=== PATIENT | female | born 1940 | race Caucasian/White ===

== ENCOUNTER 2019-02-15 15:14 | Observation (INO) | payer MEDICARE, BC ==
--- NOTE | 2019-02-15 15:36 | EDM.PDOC ---
ED HPI GENERAL MEDICAL PROBLEM - General Chief Complaint: Head Injury Stated Complaint: FALL FROM STANDING HEIGHT Time Seen by Provider: 02/15/19 15:25 Source of Information: Reports: Patient, EMS, Family History Limitations: Reports: Other (Patient has baseline dementia) - History of Present Illness INITIAL COMMENTS - FREE TEXT/NARRATIVE: Patient presents by EMS. States she was in her driveway slipped and fell backwards hitting her head on concrete. Fall was witnessed. Initially patient was confused after the fall. Has headaches no blurred vision has no neck pain. Denies any other injury. Patient is on aspirin. Patient has baseline dementia Onset: Today, Sudden Onset Date: 02/15/19 Onset Time: 14:30 Location: Reports: Head Quality: Reports: Ache, Burning Severity: Moderate Improves with: Reports: Cold Therapy Worsens with: Reports: Movement Context: Reports: Other (Patient was walking down her driveway when she fell) Associated Symptoms: Reports: Confusion, Headaches, Malaise, Weakness Treatments DYNAMICIST: Reports: See EMS Report. Denies: Cervical Collar Generalized Pain Score (Numeric/FACES): 3 - Related Data Allergies Allergy/AdvReac Type Severity Reaction Status Date / Time influenza virus vaccine, Allergy Hives Verified 02/15/19 20:02 specific [influenza virus vacc,specific] iodine Allergy Hives Verified 02/15/19 20:02 shellfish derived Allergy Hives Verified 02/15/19 20:02 cephalexin AdvReac YEAST Verified 02/15/19 20:02 codeine AdvReac Nausea and Verified 02/15/19 20:02 Vomiting erythromycin base AdvReac Nausea and Verified 02/15/19 20:02 Vomiting oxycodone HCl [From Percocet] AdvReac Nausea and Verified 02/15/19 20:02 Vomiting Home Meds: Home Meds Acetaminophen [Tylenol Extra Strength] 500 mg PO Q4HR PRN 01/22/15 [History] Aspirin [Adult Low Dose Aspirin EC] 81 mg PO DAILY 01/22/15 [History] Cholecalciferol (Vitamin D3) [D3-2000] 2,000 unit PO DAILY 01/22/15 [History] Multivitamin [Multi-Vitamin Daily] 1 tab PO DAILY 01/22/15 [History] Propranolol [Inderal LA] 120 mg PO DAILY 01/22/15 [History] Raloxifene [Evista] 60 mg PO DAILY 01/22/15 [History] atorvaSTATin [Lipitor] 40 mg PO BEDTIME 01/22/15 [History] Donepezil [Aricept] 5 mg PO BEDTIME 02/15/19 [History] FLUoxetine HCl [Fluoxetine HCl] 40 mg PO DAILY 02/15/19 [History] Losartan [Cozaar] 100 mg PO DAILY 02/15/19 [History] Past Medical History Cardiovascular History: Reports: High Cholesterol, Hypertension Other Cardiovascular History: palputations... medication Respiratory History: Reports: Asthma Musculoskeletal History: Reports: Arthritis Psychiatric History: Reports: Alzheimers Disease Other Oncologic History: on medication for 5 years... - Past Surgical History Other Musculoskeletal Surgeries/Procedures:: BILATERAL KNEE SURGERY TO REMOVE BONE PARTICALS Other Oncologic Surgeries/Procedures: RIGHT Social & Family History - Family History Family Medical History: Unobtainable ED ROS GENERAL - Review of Systems Review Of Systems: See Below Constitutional: Reports: Weakness HEENT: Reports: Ear Pain, Eye Pain. Denies: Vision Change Respiratory: Reports: No Symptoms Cardiovascular: Reports: No Symptoms Endocrine: Reports: No Symptoms GI/Abdominal: Reports: No Symptoms : Reports: No Symptoms Musculoskeletal: Reports: Neck Pain, Back Pain, Muscle Pain, Muscle Stiffness Skin: Reports: Wound (on the lateral aspect of her left eye), Other Neurological: Reports: Confusion, Dizziness, Headache, Difficulty Walking, Weakness, Gait Disturbance. Denies: Trouble Speaking, Change in Speech Psychiatric: Reports: Anxiety Hematologic/Lymphatic: Reports: Easy Bleeding Immunologic: Reports: No Symptoms ED EXAM, HEAD INJURY - Physical Exam Exam: See Below Text/Narrative:: pt on arrival was alert , but was not able to answer questions appropriately : unsure of date of , day and time did remember her name on reviewed pt has baseline dementia and is on Donepezil Exam Limited By: Other (Cognitive impairment) General Appearance: Alert, No Apparent Distress, Mild Distress Head: Active Bleeding, Facial Abrasions, Facial Lacerations (one the lateral aspect of the left eye noted to have deep laceration , extending about 3.5cm in length , 2 cm wide adn 1 cm deep, dirty , contaminated wound . Also had and abrasion lateral to the left eyebrow), Facial Swelling, Facial Tenderness. No: Scalp Lacerations, Scalp Abrasions, Scalp Tenderness, Sinus Tenderness Nexus Criteria: Altered Level of Consciousness (initial change in LOC when EMS picked pt , gradually improved). No: Posterior, Midline Cervical Tenderness, Focal Neurological Deficit Eyes: Bilateral Eye: EOMI, Normal Fundi, Normal Inspection, PERRL Ears: Normal External Exam, Normal Canal, Normal TMs Nose: Normal Inspection, Normal Mucousa Throat/Mouth: Normal Oropharynx, Normal Voice, Other (abrrasion on the lower lip ) Neck: Full Range of Motion, Normal Alignment Respiratory: No Respiratory Distress, Lungs Clear Cardiovascular: Normal Peripheral Pulses, Regular Rate, Rhythm Back Exam: Normal Inspection, Full Range of Motion. No: CVA Tenderness (R) Extremities: Normal Inspection, Normal Range of Motion Neurologic: No Motor/Sensory Deficits, Alert, Other (pt oriented to self only) Skin: Normal Color, Warm/Dry - [place] Coma Score Best Eye Response ([place]): (4) Open Spontaneously Best Verbal Response (Zee): (4) Confused Conversation Best Motor Response (Zee): (6) Obeys Commands ED LACERATION/WOUND & PETER PROC - Laceration/Wound Repair Left Side Face Lac/wound length in cm: 3.5 (2cm wide and 1cm deep) Appearance: Subcutaneous, Heavily Contaminated Distal NVT: Neuro & Vascular Intact Anesthetic Type: Local Local Anesthesia - Lidocaine (Xylocaine): 1% with EPI Local Anesthetic Volume: Other (8) Skin Prep: Chlorhexidine (Hibiciens), Saline, Sterile Drape Saline irrigation (cc's): 50 Exploration/Debridement/Repair: Wound Explored, In a Bloodless Field, Minimal Debridement, Foreign Material Removed, Wound Margins Revised Closed with: Sutures Suture Size: 6-0 # of Sutures: 8 Suture Type: Interrupted Suture Size: 5-0 # of Sutures: 1 (running) Repaired with: Vicryl Sterile Dressing Applied: Nurse Tetanus Status Addressed: Yes Complications: No Progress/Comments: Extensive wound irrigation done , sand and debris noted in the wound. Patient placed on prophylactic antibiotics , being treated for UTI also Course - Vital Signs Last Recorded V/S: Last Vital Signs Temp 36.5 C 02/15/19 21:05 Pulse 64 02/15/19 21:05 Resp 16 02/15/19 21:05 BP 181/75 H 02/16/19 08:55 Pulse Ox 100 02/15/19 21:05 - Orders/Labs/Meds Orders: Active Orders 24 hr Category Date Time Status CULTURE URINE [RM] Stat Lab 02/15/19 15:43 Received Sodium Chloride 0.9% [Normal Saline] 1,000 ml Med 02/15/19 16:45 Active IV ASDIRECTED Medication Orders Acetaminophen (Tylenol Extra Strength) 500 mg PO Q4H PRN PRN Reason: Pain Last Admin: 02/16/19 08:54 Dose: 500 mg Admin: 02/16/19 03:08 Dose: 500 mg Admin: 02/15/19 23:19 Dose: 500 mg Donepezil HCl (Aricept) 5 mg PO BEDTIME SHEILA Fluoxetine HCl (Prozac) 40 mg PO DAILY [facility] Last Admin: 02/16/19 08:55 Dose: 40 mg Admin: 02/15/19 22:35 Dose: 40 mg Sodium Chloride (Normal Saline) 1,000 mls @ 250 mls/hr IV ASDIRECTED SHEILA Last Admin: 02/15/19 17:36 Dose: 250 mls/hr Losartan Potassium (Cozaar) 100 mg PO DAILY [facility] Last Admin: 02/16/19 08:55 Dose: 100 mg Admin: 02/15/19 22:35 Dose: 100 mg Propranolol Er 120 (Mg) 1 each PO DAILY [facility] Last Admin: 02/16/19 08:55 Dose: 1 each Labs: Laboratory Tests 02/15/19 02/15/19 02/15/19 Range/Units 15:40 15:40 15:43 WBC 8.0 (4.5-12.0) X10-3/uL RBC 4.35 (3.23-5.20) x10(6)uL Hgb 13.6 (11.5-15.5) g/dL Hct 40.1 (30.0-51.3) % MCV 92.2 (80-96) fL MCH 31.2 (27.7-33.6) pg MCHC 33.8 (32.2-35.4) g/dL RDW 12.4 (11.5-15.5) % Plt Count 374 H (125-369) X10(3)uL Sodium 139 (135-145) mmol/L Potassium 3.3 L (3.5-5.3) mmol/L Chloride 101 (100-110) mmol/L Carbon Dioxide 25 (21-32) mmol/L BUN 22 H (7-18) mg/dL Creatinine 1.3 H (0.55-1.02) mg/dL Est Cr Clr Drug Dosing TNP Estimated GFR (MDRD) 40 L (>60) BUN/Creatinine Ratio 16.9 (9-20) Glucose 120 H (80-116) mg/dL Calcium 9.9 (8.6-10.2) mg/dL Urine Color Yellow (YELLOW) Urine Appearance Cloudy (CLEAR) Urine pH 5.0 (5.0-6.5) Ur Specific [place] 1.020 (1.010-1.025) Urine Protein 100 H (NEGATIVE) mg/dL Urine Glucose (UA) Normal (NORMAL) mg/dL Urine Ketones 150 H (NEGATIVE) mg/dL Urine Occult Blood Trace (NEGATIVE) Urine Nitrite Negative (NEGATIVE) Urine Bilirubin Moderate H (NEGATIVE) Urine Urobilinogen 1 H (NEGATIVE) mg/dL Ur Leukocyte Esterase Moderate H (NEGATIVE) Urine RBC 5-10 H (0-5) Urine WBC 5-10 H (0-5) Ur Squamous Epith Cells Many H (NS,R,O) Urine Bacteria Many H (NS) Urine Mucus Moderate H (NS) Meds: Medications Generic Name Dose Route Start Last Admin Trade Name Freq PRN Reason Stop Dose Admin Acetaminophen 500 mg 02/15/19 21:32 02/16/19 08:54 Tylenol Extra Strength PO 500 mg Q4H PRN Administration Pain Donepezil HCl 5 mg 02/16/19 21:00 Aricept PO BEDTIME SHEILA Fluoxetine HCl 40 mg 02/15/19 22:45 02/16/19 08:55 Prozac PO 40 mg DAILY SHEILA Administration Sodium Chloride 1,000 mls @ 250 mls/hr 02/15/19 16:45 02/15/19 17:36 Normal Saline IV 250 mls/hr ASDIRECTED SHEILA Administration Losartan Potassium 100 mg 02/15/19 22:45 02/16/19 08:55 Cozaar PO 100 mg DAILY SHEILA Administration Propranolol Er 120 1 each 02/16/19 09:00 02/16/19 08:55 Mg PO 1 each DAILY SHEILA Administration Discontinued Medications Generic Name Dose Route Start Last Admin Trade Name Freq PRN Reason Stop Dose Admin Diphtheria/Tetanus/Acell Pertussis 0.5 ml 02/15/19 20:10 02/15/19 20:25 Adacel IM 02/15/19 20:11 0.5 ml .ONCE ONE Administration Fluoxetine HCl 40 mg 02/15/19 21:45 Prozac PO DAILY SHEILA Losartan Potassium 100 mg 02/15/19 21:45 02/15/19 22:32 Cozaar PO 100 mg DAILY SHEILA Administration Non-Formulary Medication 120 mg 02/15/19 21:45 02/15/19 22:34 Propranolol [Inderal La] PO 120 mg DAILY SHEILA Administration Patient's Own 1 each 02/15/19 22:45 02/15/19 22:35 Medication PO 1 each Propranolol Er 120 DAILY SHEILA Administration Mg Potassium Chloride 40 meq 02/15/19 16:34 02/15/19 17:44 Klor-Con M20 PO 02/15/19 16:35 40 meq ONETIME ONE Administration Departure - Departure Time of Disposition: 21:05 Disposition: Refer to Observation Clinical Impression: Concussion with no loss of consciousness - Discharge Information *PRESCRIPTION DRUG MONITORING PROGRAM REVIEWED*: Not Applicable *COPY OF PRESCRIPTION DRUG MONITORING REPORT IN PATIENT CARLITO: Not Applicable - My Orders Last 24 Hours: My Active Orders 02/15/19 15:43 CULTURE URINE [RM] Stat 02/15/19 16:45 Sodium Chloride 0.9% [Normal Saline] 1,000 ml IV ASDIRECTED - Assessment/Plan Last 24 Hours: My Active Orders 02/15/19 15:43 CULTURE URINE [RM] Stat 02/15/19 16:45 Sodium Chloride 0.9% [Normal Saline] 1,000 ml IV ASDIRECTED
[2019-02-15] MEDS ORDERED: Potassium Chloride 20 MEQ Tab.ER PO ONE (16:34)
[2019-02-15] MEDS ORDERED: Sodium Chloride 0.9% 1,000 ML IV SCH (16:45)
[2019-02-15] MEDS ORDERED: Diphtheria,Pertussis(Acell),Tetanus Vaccine 0.5 ML SDV IM ONE (20:10)
[2019-02-15] MEDS ORDERED: FLUoxetine 20 MG Cap PO SCH (21:45)
[2019-02-15] MEDS ORDERED: Losartan 100 MG Tab PO SCH (21:45)
[2019-02-15] MEDS ORDERED: Non-Formulary Medication 1 Each (Propranolol [Inderal La] 120 MG) PO SCH (21:45)
[2019-02-15] MEDS: FLUoxetine 20 MG Cap**OWN MED PO SCH (22:35)
[2019-02-15] MEDS: Losartan 100 MG Tab**OWN MED PO SCH (22:35)
[2019-02-15] MEDS ORDERED: PROPRANOLOL 120 MG PO SCH (22:45)
[2019-02-15 22:59] VITALS: PULSE 64
[2019-02-15] MEDS: Acetaminophen 500 MG Tab *PTOM PO PRN (23:19)
[2019-02-16] MEDS: Acetaminophen 500 MG Tab *PTOM PO PRN ×2 (03:08→08:54)
--- NOTE | 2019-02-16 08:05 | CT ---
INDICATION: Stumbled on driveway, falling, hitting left side of head, does not complain of headache or pain. CT HEAD WITHOUT CONTRAST: Spiral examination of the brain was obtained with 3.75 mm axial sections, with sagittal and coronal reconstructions, 02/15/19 - no comparisons. Total exam DLP = 1,244.99 mGy-cm. The mastoid air cells and the paranasal sinuses were well-aerated. There appears to be some soft tissue swelling in the area of the right cheek - maxillary area. No underlying fracture site was seen in the area of apparent trauma in the left frontoparietal area. The patient is positioned asymmetrically. No definite shift of midline structures was seen. The ventricles are prominent, compatible with central atrophy. The sulci at the temporal lobes are prominent, compatible with temporal lobe atrophy of mild degree. Low density abnormality in the right basal ganglia suggests a lacunar infarct. Moderate low density abnormality is diffusely present throughout the white matter, especially on the right, compatible with microvascular disease of moderate degree. This should be correlated clinically, as other cause of leukoencephalopathy could also be present. Calcifications are noted in the internal carotid arteries. No bleeding site or hematoma was identified - no definite acute intracranial abnormality was seen. The orbits appear to be grossly intact. IMPRESSION: 1. No acute intracranial abnormality. 2. White matter changes compatible with moderate microvascular disease, asymmetrically more prominent on the right. 3. Central and temporal lobe cortical atrophy. Report was called to Dr. Em at 1630 hours on 02/15/19. [facility]
--- NOTE | 2019-02-16 08:13 | CT ---
INDICATION: Stumbled on driveway, falling, hitting left side of head, does not complain of headache or pain. CT CERVICAL SPINE: Spiral 2.5 mm axial sections were obtained through the cervical spine, with sagittal and coronal reconstructions, and revealed minimal degenerative changes at the atlantoodontoid joint. The odontoid and atlas appear intact. Total exam DLP = 364.93 mGy-cm. Hypertrophic degenerative changes, sclerosis, subchondral cystic changes, and narrowing of disk spaces are seen at the C3-4, C4-5, C5-6, C6-7, and C7-T1 levels with vacuum disk phenomena at the mid to lower levels, minimal to mild. Hypertrophic spurring is noted both anteriorly and posteriorly off vertebral bodies with narrowing of neural foramina on the right at C3-4, C4-5, C5-6, and C6-7 to a slightly lesser extent. Narrowing of the neural foramina appears less prominent on the left but is not as well seen. Prevertebral space and bone density appear to be normal. A definite acute fracture or dislocation was not identified. Vertebral elements appear to be fairly well-aligned, except for minimal retrolisthesis at levels from C3 through C7. The apical lung included on the study was unremarkable. IMPRESSION: 1. No acute fracture or dislocation. 2. Degenerative changes and disk disease from C3 through T1 with impingement on neural foramina as noted above. Report was called to Dr. Em at 1630 hours on 02/15/19. [facility]
[2019-02-16] MEDS: FLUoxetine 20 MG Cap**OWN MED PO SCH (08:55)
[2019-02-16] MEDS: Losartan 100 MG Tab**OWN MED PO SCH (08:55)
[2019-02-16 08:56] VITALS: BP 181/75
[2019-02-16] MEDS ORDERED: PROPRANOLOL 120 MG PO SCH (09:00)
--- NOTE | 2019-02-16 11:28 | HP ---
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 Apparently by report, she was walking down her driveway, did a toe-pick and fell forward, striking above and just lateral to the eye, sustaining a laceration. Fall was witnessed, initially confused, but no loss of consciousness. Was seen in the emergency room. She had complains of local pain only. She is on aspirin therapy. Laceration was repaired and admitted for observation. Concerns increasingly raised of memory, independence in living alone, family members i.e. daughter and son-in-law from [place] are coming to plan to take her back to [place] in the interim. MEDICATIONS: Present medications include: 1. P.r.n. Tylenol. 2. Baby aspirin 81 mg. 3. Vitamin D3 2000 units daily. 4. Multivitamin one p.o. daily. 5. Propranolol CR 121 p.o. daily, headache prevention. 6. Evista 60 mg daily, osteoporosis. 7. Atorvastatin 40 mg 1 p.o. daily, hyperlipidemia. 8. Aricept 5 mg p.o. at bedtime, new start. 9. Fluoxetine 40 mg daily, mood stabilizer. 10.Losartan 100 mg one p.o. daily. ALLERGIES: Include iodine, shellfish, cephalexin, codeine, erythromycin, and oxycodone. PAST MEDICAL HISTORY: Significant for treated hypertension and hyperlipidemia. She has had a previous breast cancer. No other operative procedures, hospitalizations, unusual childhood diseases, major injuries, or fractures. SOCIAL HISTORY: Lives in [place], has been for many years' duration. Retired RN. Two adopted kids, a son and a daughter. Son lives in [facility] [place] and daughter lives in [place]. Three grandchildren. Smoked remotely. No alcohol consumption or illicit drug use. REVIEW OF SYSTEMS: CONSTITUTIONAL: Focal pain. Sees well. Hearing is difficult. Bowels have been fine. Bladder has been fine. No blood in stools. No blood in urine. No complicated cough or respiratory difficulty, no unusual skin rashes. Mood under review. PHYSICAL EXAMINATION: VITAL SIGNS: 154/60, mean blood pressure 96, 36.5, weight 73 kg, O2 100%. GENERAL: Delightful lady, bright, alert, awake, and responds appropriately. HEENT: Funduscopic benign. Conjunctivae clear. Bright tympanic membranes. No blood behind the eardrum. Clear nasal discharge. Mouth and oropharynx revealed an abrasion on the left lower lip. Face also had a circumferential laceration surgically above the left eyebrow. NECK: Some palpable tenderness. CHEST: Clear in all lung kaplan. No adventitious sounds. HEART: No ectopy or murmur. ABDOMEN: Benign. No hepatosplenomegaly. BREASTS: Surgical scar noted. Unilateral breast. AND RECTAL: Deferred. EXTREMITIES: Well perfused. SKIN: No unusual rash. NEUROLOGIC: Gait and station appropriate. LABORATORY STUDIES: White count 8000, hemoglobin 13.6, platelets 374,000, and normal indices. Potassium 3.3. Urinalysis noted some pyuria and hematuria, culture pending. CT head, atrophy. Cervical spine CT, DJD. ASSESSMENT: 1. A 78-year-old female, presents with soft tissue injury, laceration to left face, no signs of cranial or cervical injury. 2. Hypertension. 3. Hyperlipidemia. 4. Cognitive impairment. 5. Mood disorder. PLAN: Wounds appear to be well. Local care. No focal findings. Will discharge home to family and care, moving to [place]. ADDENDUM: Discharge exam at the time of this examination. /[id number] BLADIMIR/JANEL
--- NOTE | 2019-02-16 11:36 | CR ---
INDICATION: Fall, rib pain. LEFT RIBS WITHOUT CHEST: Four views of the left ribs were obtained, 02/15/19, and revealed no displaced fracture site or other definite rib abnormality. Degenerative changes are severe at the glenohumeral joint on the left incidentally. In the underlying thorax, no contusion, infiltrate, effusion, or pneumothorax was identified. MTDD
[2019-02-16] MEDS ORDERED: Donepezil 5 MG Tab PO SCH (21:00)
== END 2019-02-16 10:34 | disposition home or self-care (01) ==
LOC: FB.ED 15:14 → FB.MS 20:14
PROVIDERS: ADMIT Family Medicine; ATTEND Family Medicine
DX: S01.81XA Laceration without foreign body of other part of head, initial encounter (principal); I10 Essential (primary) hypertension; E78.00 Pure hypercholesterolemia, unspecified; J45.909 Unspecified asthma, uncomplicated; G30.9 Alzheimer's disease, unspecified; F02.80 Dementia in other diseases classified elsewhere, unspecified severity, without behavioral disturbance, psychotic disturbance, mood disturbance, and anxiety; F39 Unspecified mood [affective] disorder; W01.198A Fall on same level from slipping, tripping and stumbling with subsequent striking against other object, initial encounter; Z88.1 Allergy status to other antibiotic agents; Z88.5 Allergy status to narcotic agent; Z91.013 Allergy to seafood; Z88.7 Allergy status to serum and vaccine; Z91.048 Other nonmedicinal substance allergy status; Z79.82 Long term (current) use of aspirin; Z79.899 Other long term (current) drug therapy
CPT/HCPCS: 12002; 12052; 36415; 70450; 71100; 72125; 80048; 81001; 85027; 87086; 90471; 90715; 96360; 96361; 99284; 99285; A9270; G0378; J7030